=== PATIENT | male | born 1965 | race Caucasian/White ===

== ENCOUNTER 2021-10-30 19:41 | Emergency (ER) | payer BC, SELFPAY ==
[2021-10-30 19:43] VITALS: PULSE 40
--- NOTE | 2021-10-30 20:08 | PC.NURSE ---
ACLS protocol continued after arrival see code sheet. pt pronounced at [address] olsen
--- NOTE | 2021-10-30 20:21 | ED.CPR ---
HPI - CPR General Chief Complaint: Cardiac Arrest/CPR Stated Complaint: WITNESSED CARDIAC ARREST Time Seen by Provider: 10/30/21 20:08 Source: EMS Mode of arrival: EMS Limitations: clinical condition History of Present Illness HPI narrative: 59 or 69-year-old male Arrives per EMS after cardiac arrest Per EMS crew, patient had been outside shoveling snow After coming back in the house he complained of feeling poorly and then collapsed 911 was called and arrived to the home about 5 minutes later and CPR was begun then; no bystander CPR that they knew of Paramedics reported that they thought that he was in V. fib and they got there and that they attempted defibrillation, got access with a IO line, and gave epi They attempted intubation x1 but stopped because of bleeding either from the oropharynx or the nose and placed an igel And he was placed on a Chi device He arrived to the ED 40 minutes after we received the outbound EMS notification being bagged and with the Chi going He was deeply cyanotic, pulses only with chest compressions, pupils midpoint and equal, being bagged with the Chi, some blood coming out of his nose and mouth, monitor showing an occasional wide-complex at a rate of approximately 20-30 and had an occasional agonal type respiratory effort Review of Systems Review of Systems: ROS unobtainable: Yes unobtainable due to medical condition PMFSH Comments Unknown Exam Const: Other: Cyanotic, unresponsive HENMT: Other: I gel in place, blood from the nose and mouth Eyes: Other: Pupils midpoint, not reactive Resp: Other: He is bagged via the I gel Cardio: Other: No heart sounds Skin: Other: Deeply cyanotic Neuro: Other: Unresponsive Course Course Emergency Course: See code sheet I gel was removed and he was intubated Chest compressions delivered via the Chi Received several more cycles of epi, atropine, and 1 dose of amiodarone because of the thought that his original rhythm was V. fib however his rhythm effectively remained a junctional bradycardia with a rate of about 20 with PEA and no cardiac activity on bedside ultrasound We decided further efforts were futile and stopped resuscitation at 1999 Vital Signs Vital signs: Vital Signs Pulse Rate 40 L 10/30/21 19:43 Pulse Rate 40 L 10/30/21 19:43 Procedures Intubation Intubation #1: Intubation Date: 10/30/21 Intubation Time: 19:40 sedative: none Laryngoscope: Belen Tube Size (cm): 7.5 Method of Intubation: orotracheal Number of Attempts: 1 Tube Secured Depth (cm): 24 Tube Secured Location: teeth Tube Placement Confirmation: visualized tube passing through cords, equal breath sounds bilaterally, no breath sounds over epigastrium and confirmation by capnometry Critical Care Time Critical Care Time Critical Care Time: Yes Total Critical Care Time: 20 Discharge Plan Discharge Clinical Impression: Sudden cardiac Patient Disposition: Condition: Follow-up/Referrals: UNKNOWN,DOCTOR [Primary Care Provider] -
--- NOTE | 2021-10-30 20:27 | PC.NURSE ---
LEAD PRESSER ANGEL NOTIFIED AT 2026 - PLEASE CALL BACK WITH PCP, HOME
--- NOTE | 2021-10-30 20:34 | PC.NURSE ---
RASHAD AYALA WILL LOOK PATIENT UP AND CALL US BACK IF ACCEPTING.
--- NOTE | 2021-10-30 20:49 | PC.NURSE ---
RASHAD GERARDO SAID TO RELEASE PT AT THIS TIME TO HOME IF HYDRAULIC DESIGN ENGINEER HAS RELEASED. SHE IS NOT A CANDIDATE.
--- NOTE | 2021-10-30 21:25 | PC.NURSE ---
INSURANCE POLICY CLERK RELEASED THE BODY TO HOME. WILL CALL US WITH A HOME ONCE SHE HAS ONE SELECTED.
--- NOTE | 2021-10-30 21:54 | PC.NURSE ---
1812 post mortem care complete pt to [facility]
== END 2021-10-30 21:50 | disposition expired ==
PROVIDERS: Emergency Provider Emergency Medicine
DX: I46.9 Cardiac arrest, cause unspecified (principal)
CPT/HCPCS: 31500; 92950; 99285; J0153; J0171; J0282; J0461; J7030